=== PATIENT | female | born 1995 | race Caucasian/White ===

== ENCOUNTER 2023-06-01 09:40 | Outpatient (CLI) | payer OTHER, SELFPAY ==
--- NOTE | ~2023-06-01 | US_ITS ---
Pelvic ultrasound. Clinical History: Ovarian polyps Technique: Realtime transabdominal and transvaginal scanning of the pelvis was performed. Color flow Doppler and Doppler spectral analysis were performed. Findings: The uterus is anteverted. The endometrial stripe has a thickness of 8 mm. No focal mass is identified. The right ovary measures 3.3 x 2.2 x 3.9 cm. Right ovarian cyst measures 2.0 cm in diameter. The left ovary measures 3.2 x 2.0 x 3.6 cm. No significant left ovarian or adnexal mass is seen. There is minimal free fluid in the cul de sac. Impression: Minimal free fluid, otherwise unremarkable exam. Reviewed, dictated and finalized at location M. Impression: Minimal free fluid, otherwise unremarkable exam.
== END 2023-06-01 09:41 ==
LOC: MICIMG 09:41
PROVIDERS: PCP Obstetrics & Gynecology; Visit Provider Obstetrics & Gynecology
DX: N93.9 Abnormal uterine and vaginal bleeding, unspecified (principal)
CPT/HCPCS: 76830; 76856

== ENCOUNTER 2023-09-30 20:50 | Observation (INO) | payer OTHER, SELFPAY ==
[2023-09-30 21:31] VITALS: BP 130/68; PULSE 84
[2023-09-30 21:45] VITALS: BP 129/72; PULSE 80
[2023-09-30 21:52] LABS: Appearance Urine Clear (Clear); Bilirubin Urine Negative (Negative); Blood Urine Negative (Negative); Color Urine Yellow (Yellow); Glucose Urine UA Negative (Negative); Ketones Urine Negative (Negative); Leukocyte Esterase Ur Negative LEU/UL (Negative); Nitrate Urine Negative (Negative); Protein Urine Negative (Negative); Specific Grav Ur 1.002 (1.001-1.035); Urobilinogen Urine 0.2 mg/dL (<2.0); pH Urine 6.5 (5.0-9.0)
[2023-09-30 22:00] VITALS: BP 120/81; PULSE 85
[2023-09-30 22:08] LABS: Add Urine Microscopic? NO
[2023-09-30 22:12] LABS: OBXCEM Questionable ROM
[2023-09-30 22:15] VITALS: BP 111/61; PULSE 79
[2023-09-30 22:17] VITALS: BMI 30.7
--- NOTE | 2023-09-30 22:17 | OBADM ---
This patient, Jacqui Jorge, admitted to the OB room OB Post 117 for observation. Patient/family oriented to hospital policies and general routines including ID bracelet, bed and alarms, visiting hours, pain management, procedures, bathroom and other care routines, personal items, smoking policy, room service/diet, and visiting hours. Patient/Family are encouraged to report perceived risks to care and to ask questions if they do not understand what they are told or what they should do.
--- NOTE | 2023-10-02 09:22 | P.PNOB_ITS ---
OB - Triage/Final Diagnosis Visit Information Comments/Additional reasons for admission: I have assessed the risk for this patient, Jacqui Jorge, and determined that she would benefit from observation care. Evaluation Laboratory results: Laboratory Tests 09/30/23 09/30/23 21:45 22:02 Urine Color Yellow Urine Appearance Clear Urine pH 6.5 Ur Specific [place] 1.002 Urine Protein Negative Urine Glucose (UA) Negative Urine Ketones Negative Ur Blood (Man) Negative Urine Nitrate Negative Urine Bilirubin Negative Urine Urobilinogen 0.2 Leukocyte Esterase Rfl Negative Membranes Rupture Questionable rom Membranes Rup Com Yes Final Diagnosis (1) Vaginal bleeding before 22 weeks gestation: Code(s): O20.9 - Hemorrhage in early , unspecified Status: Acute
== END 2023-09-30 22:30 | disposition home or self-care (01) ==
PROVIDERS: Admitting Provider Obstetrics & Gynecology; Visit Provider Obstetrics & Gynecology
DX: O20.9 Hemorrhage in early pregnancy, unspecified (principal)
CPT/HCPCS: 81003; 84112; G0378; G0379

== ENCOUNTER 2023-12-01 07:33 | Outpatient (CLI) | payer OTHER, SELFPAY ==
[2023-12-01 09:23] LABS: Basophils Percent Auto 0.5 % (0.2-1.2); Eosinophils Absolute Auto 0.2 K/mm3 (0-0.3); Eosinophils Percent Auto 2.1 % (0-4.4); Hematocrit 33.1 % (37.0-47.0); Hemoglobin 10.6 g/dL (12.0-15.0); Immature Granulocyte Absolute 0.02 K/mm3 (0.00-0.031); Immature Granulocyte Percent A 0.2 % (0-0.5); Lymphocytes Absolute Auto 1.45 K/mm3 (0.9-3.2); Lymphocytes Percent Auto 16.6 % (18.3-44.2); Mean Corpuscular Volume 87.6 fl (80-100); Mean Platelet Volume 11.1 fl (7.4-10.4); Monocytes Absolute Auto 0.7 K/mm3 (0.1-0.6); Monocytes Percent Auto 7.4 % (2.6-8.5); Neutrophils Absolute Auto 6.4 K/mm3 (1.3-6.7); Neutrophils Percent Auto 73.2 % (45.5-73.1); Platelet Count Result 182 k/mm3 (150-375); Red Blood Count 3.78 M/mm3 (4.2-5.4); Red Cell Distribution Width 13.5 % (11.5-14.5); White Blood Count 8.7 K/mm3 (4.5-10.0)
[2023-12-01 09:33] LABS: Glucose 1 Hour PP 50gm Dose 75 mg/dL
[2023-12-01 10:59] LABS: HIV 1/2 Ab P24 Ag Result Negative (Negative)
[2023-12-02 11:10] LABS: Rapid Plasma Reagin Non-Reactive (NonReactive)
== END 2023-12-01 07:34 | disposition home or self-care (01) ==
LOC: ANHLAB 07:34
PROVIDERS: Visit Provider Student in an Organized Health Care Education/Training Program
DX: Z34.90 Encounter for supervision of normal pregnancy, unspecified, unspecified trimester (principal)
CPT/HCPCS: 36415; 82947; 85025; 86592; 86703; G0432

== ENCOUNTER 2024-01-07 13:58 | Observation (INO) | payer OTHER, SELFPAY ==
[2024-01-07 14:30] VITALS: BP 128/69; PULSE 77
[2024-01-07 14:45] VITALS: BP 119/70; PULSE 80
--- NOTE | 2024-01-07 15:09 | OBADM ---
This patient, Jacqui Jorge, admitted to the OB room OB Post 116 for observation. Patient/family oriented to hospital policies and general routines including ID bracelet, bed and alarms, visiting hours, pain management, procedures, bathroom and other care routines, personal items, smoking policy, room service/diet, and visiting hours. Patient/Family are encouraged to report perceived risks to care and to ask questions if they do not understand what they are told or what they should do.
--- NOTE | 2024-01-08 07:38 | PM.OBTRLD ---
OB - Triage/Final Diagnosis Visit Information Date of evaluation: 01/06/24 Reason for evaluation: threatened labor Comments/Additional reasons for admission: I have assessed the risk for this patient, Jacqui Jorge, and determined that she would benefit from observation care. Evaluation Vital signs: Vital Signs - 24 hr 01/07/24 14:30 01/07/24 14:45 01/07/24 14:20 Pulse Rate 77 80 Blood Pressure 128/69 119/70 Oxygen Delivery Room Air
== END 2024-01-07 15:10 | disposition home or self-care (01) ==
PROVIDERS: Admitting Provider Student in an Organized Health Care Education/Training Program; Visit Provider Student in an Organized Health Care Education/Training Program
DX: O47.03 False labor before 37 completed weeks of gestation, third trimester (principal); Z3A.33 33 weeks gestation of pregnancy
CPT/HCPCS: G0378; G0379

== ENCOUNTER 2024-01-12 10:14 | Observation (INO) | payer OTHER, SELFPAY ==
[2024-01-12 10:39] VITALS: BP 129/87; PULSE 91
[2024-01-12 10:45] VITALS: BMI 36.3
[2024-01-12 10:47] LABS: Add Urine Microscopic? NO; Appearance Urine Clear (Clear); Bilirubin Urine Negative (Negative); Blood Urine Negative (Negative); Color Urine Yellow (Yellow); Glucose Urine UA Negative (Negative); Ketones Urine Negative (Negative); Leukocyte Esterase Ur Negative LEU/UL (Negative); Nitrate Urine Negative (Negative); Protein Urine Negative (Negative); Specific Grav Ur 1.004 (1.001-1.035); Urobilinogen Urine 0.2 mg/dL (<2.0); pH Urine 6.5 (5.0-9.0)
--- NOTE | 2024-01-12 10:58 | LDADM ---
This patient, Jacqui Jorge, was admitted to OB Post 116 on 01/12/24 at 10:14. Plans for labor, pain management and were discussed with patient. Patient/family oriented to hospital policies and general routines including ID bracelet, bed and alarms, visiting hours, pain management, procedures, bathroom and other care routines, personal items, smoking policy, room service/diet and guest tray routines, security routines, and visiting hours. Patient/Family are encouraged to report perceived risks to care and to ask questions if they do not understand what they are told or what they should do. See OBIX for further documentation.
[2024-01-12 11:00] VITALS: BP 123/78; PULSE 85
[2024-01-12 11:10] VITALS: BP 129/87
--- NOTE | 2024-01-12 11:38 | PC.NURSE ---
1114--Reported reactive NST and lab results to Dr. Kohler. DC orders given.
--- NOTE | 2024-01-14 11:21 | P.PNOB_ITS ---
OB - Triage/Final Diagnosis Visit Information Reason for evaluation: decreased movement Comments/Additional reasons for admission: I have assessed the risk for this patient, Jacqui Jorge, and determined that she would benefit from observation care. Evaluation Laboratory results: Laboratory Tests 01/12/24 10:36 Urine Color Yellow Urine Appearance Clear Urine pH 6.5 Ur Specific [place] 1.004 Urine Protein Negative Urine Glucose (UA) Negative Urine Ketones Negative Ur Blood (Man) Negative Urine Nitrate Negative Urine Bilirubin Negative Urine Urobilinogen 0.2 Leukocyte Esterase Rfl Negative
== END 2024-01-12 11:25 | disposition home or self-care (01) ==
PROVIDERS: Admitting Provider Obstetrics & Gynecology; Visit Provider Obstetrics & Gynecology
DX: O36.8130 Decreased fetal movements, third trimester, not applicable or unspecified (principal); Z3A.34 34 weeks gestation of pregnancy
CPT/HCPCS: 59025; 81003; G0378; G0379

== ENCOUNTER 2024-01-26 07:46 | Outpatient (CLI) | payer OTHER, SELFPAY ==
--- NOTE | ~2024-01-26 | US_ITS ---
EXAMINATION: US OB follow up DATE: 01/26/2024 08:50 INDICATION: Encounter for supervision of normal during third trimester TECHNIQUE: Real-time ultrasound of the pelvis was performed. The interpreting radiologist was not pre sent for the study. COMPARISON: None. FINDINGS: There is a single living fetus in vertex presentation. The placenta is right anterior and not low-ly ing. heart rate is 142 beats per minute (bpm). The amniotic fluid index is 10.9 cm, which is n ormal. Cervical length appears within normal limits but the internal os and external os are not clear ly visualized. The following biometric data were obtained: BPD: 8.9 cm -> 36 weeks 0 days Head circumference: 32.1 cm -> 36 weeks 2 days Abdominal circumference: 32.2 cm -> 36 weeks 0 days Femur length: 7.1 cm -> 36 weeks 3 days These measurements are concordant. Head circumference to abdominal circumference ratio: 1.00 (normal range 0.92-1.08). Estimated weight: 2868 g (+/-) 430 g or 6 lbs. 5 oz. (+/-) 15 oz. IMPRESSION: 1. Single living fetus in vertex presentation with heart rate of 142 bpm. 2. Normal amniotic fluid index of 10.9 cm. 3. Estimated weight is 53rd percentile by Hadlock criteria when 02/22/2024 is used as the estima liss date of delivery (BELGICA). Please correlate with clinical information or earlier ultrasounds for mos t accurate [place]GICA. Reviewed, dictated and finalized at location B. IO OPERATIONS MANAGER IMPRESSION: 1. Single living fetus in vertex presentation with heart rate of 142 bpm. 2. Normal amniotic fluid index of 10.9 cm. 3. Estimated weight is 53rd percentile by Hadlock criteria when 02/22/2024 is used as the estimated date of delivery (BELGICA). Please correlate with clinica l information or earlier ultrasounds for most accurate BELGICA.
== END 2024-01-26 07:47 | disposition home or self-care (01) ==
PROVIDERS: PCP Student in an Organized Health Care Education/Training Program; Visit Provider Student in an Organized Health Care Education/Training Program
DX: Z34.90 Encounter for supervision of normal pregnancy, unspecified, unspecified trimester (principal); Z3A.00 Weeks of gestation of pregnancy not specified
CPT/HCPCS: 76816

== ENCOUNTER 2024-02-11 07:43 | Observation (INO) | payer OTHER, SELFPAY ==
--- NOTE | 2024-02-11 07:43 | OBADM ---
This patient, Jacqui oJrge, admitted to the OB room Labor/Delivery/Recovery 106 for observation. Patient/family oriented to hospital policies and general routines including ID bracelet, bed and alarms, visiting hours, pain management, procedures, bathroom and other care routines, personal items, smoking policy, room service/diet, and visiting hours. Patient/Family are encouraged to report perceived risks to care and to ask questions if they do not understand what they are told or what they should do.
[2024-02-11 08:00] VITALS: BMI 34.4
--- NOTE | 2024-02-12 07:49 | PM.OBTRLD ---
OB - Triage/Final Diagnosis Visit Information Date of evaluation: 02/11/24 Reason for evaluation: threatened labor Comments/Additional reasons for admission: I have assessed the risk for this patient, Jacqui Jorge, and determined that she would benefit from observation care. Evaluation Vital signs: Vital Signs - 24 hr 02/11/24 08:00 Oxygen Delivery Room Air
== END 2024-02-11 10:35 | disposition home or self-care (01) ==
PROVIDERS: Admitting Provider Student in an Organized Health Care Education/Training Program; PCP Student in an Organized Health Care Education/Training Program; Visit Provider Student in an Organized Health Care Education/Training Program
DX: O47.1 False labor at or after 37 completed weeks of gestation (principal); Z3A.38 38 weeks gestation of pregnancy
CPT/HCPCS: G0378; G0379

== ENCOUNTER 2024-02-12 05:05 | Inpatient (IN) | payer OTHER, SELFPAY ==
[2024-02-12] VITALS (213 sets, daily range): BP systolic 113–166; BP diastolic 45–138; PULSE 42–152; RESP 14; TEMP 36.3–37.7; O2SAT 84–100; BMI 34.4
--- NOTE | 2024-02-12 05:05 | LDADM ---
This patient, Jacqui Jorge, was admitted to Labor/Delivery/Recovery 106 on 02/12/24 at 05:05. Plans for labor, pain management and were discussed with patient. Patient/family oriented to hospital policies and general routines including ID bracelet, bed and alarms, visiting hours, pain management, procedures, bathroom and other care routines, personal items, smoking policy, room service/diet and guest tray routines, infant security routines, and visiting hours. Patient/Family are encouraged to report perceived risks to care and to ask questions if they do not understand what they are told or what they should do. See OBIX for further documentation.
[2024-02-12] MEDS: LACTATED RINGERS 1,000 ML 125 ML IV CONT ×3 (06:35→13:36)
[2024-02-12] MEDS: OXYTOCIN 30 UNITS/NS 500 ML 30 UNITS/500 ML BAG IV CONT (06:36)
[2024-02-12 06:37] LABS: Basophils Absolute Auto 0.1 K/mm3 (0.0-0.1); Basophils Percent Auto 0.7 % (0.2-1.2); Eosinophils Absolute Auto 0.1 K/mm3 (0-0.3); Eosinophils Percent Auto 1.3 % (0-4.4); Hematocrit 32.8 % (37.0-47.0); Hemoglobin 9.6 g/dL (12.0-15.0); Immature Granulocyte Absolute 0.04 K/mm3 (0.00-0.031); Immature Granulocyte Percent A 0.4 % (0-0.5); Mean Corpuscular HGB Conc 29.3 g/dl (32-36); Mean Corpuscular Hemoglobin 24.8 pg (26-34); Mean Corpuscular Volume 84.8 fl (80-100); Mean Platelet Volume 11.2 fl (7.4-10.4); Monocytes Absolute Auto 0.7 K/mm3 (0.1-0.6); Monocytes Percent Auto 8.1 % (2.6-8.5); Neutrophils Absolute Auto 6.4 K/mm3 (1.3-6.7); Neutrophils Percent Auto 71.5 % (45.5-73.1); Platelet Count Result 178 k/mm3 (150-375); Red Blood Count 3.87 M/mm3 (4.2-5.4); Red Cell Distribution Width 13.6 % (11.5-14.5); White Blood Count 8.9 K/mm3 (4.5-10.0)
--- NOTE | 2024-02-12 07:26 | P.PNAN_ITS ---
Anes - Eval Pre Procedure Procedure: labor epidural Date/Time: 02/12/24 07:26 Surgeon: Maryjo Preop Diagnosis: Pain during labor Pre Op Diagnosis: SROM Patient Data Age: 29 Gender: F Height: Weight: Allergies Allergy/AdvReac Type Severity Reaction Status Date / Time nitrofurantoin Allergy Severe Anaphylactic Verified 02/11/24 17:11 [From Macrobid] Shock Sulfa (Sulfonamide Allergy Severe Anaphylactic Verified 02/11/24 17:11 Antibiotics) Shock latex Allergy Intermediate Rash Verified 02/11/24 17:11 Home Medications Medication Instructions Recorded Confirmed Type vits no.126-ferrous fum 1 tablet PO DAILY 07/12/23 02/11/24 History 28 mg iron-folic acid 800 mcg tablet (Classic ) aspirin 81 mg tablet,delayed 81 mg PO BID 09/05/23 02/11/24 History release (Adult Low Dose Aspirin) ondansetron 4 mg disintegrating 4 mg PO .COMPLEX PRN nausea and 12/24/23 02/11/24 Rx tablet vomiting #30 tabs sertraline 25 mg tablet 25 mg PO DAILY #60 tabs 01/14/24 02/11/24 Rx Laboratory Tests 02/12/24 06:22 WBC 8.9 K/mm3 (4.5-10.0) RBC 3.87 L M/mm3 (4.2-5.4) Hgb 9.6 L g/dL (12.0-15.0) Hct 32.8 L % (37.0-47.0) MCV 84.8 fl (80-100) MCH 24.8 L pg (26-34) MCHC 29.3 L g/dl (32-36) RDW 13.6 % (11.5-14.5) Plt Count 178 k/mm3 (150-375) MPV 11.2 H fl (7.4-10.4) Immature Gran % (Auto) 0.4 % (0-0.5) Neut % (Auto) 71.5 % (45.5-73.1) Lymph % (Auto) 18.0 L % (18.3-44.2) [place] % (Auto) 8.1 % (2.6-8.5) Eos % (Auto) 1.3 % (0-4.4) Baso % (Auto) 0.7 % (0.2-1.2) Lymph # (Auto) 1.60 K/mm3 (0.9-3.2) [place] # (Auto) 0.7 H K/mm3 (0.1-0.6) Eos # (Auto) 0.1 K/mm3 (0-0.3) Baso # (Auto) 0.1 K/mm3 (0.0-0.1) Abs Immat Gran (auto) 0.04 H K/mm3 (0.00-0.031) Absolute Neuts (auto) 6.4 K/mm3 (1.3-6.7) Absolute Nucleated RBC 0.000 K/mm3 (0.0-0.012) Nucleated RBC % 0.0 % (0.0-0.2) RPR Pending HIV 1&2 Ab/P24 Ag 4thGn Pending Blood Type Pending Antibody Screen Pending Patient hx anesthesia problems: none Family hx anesthesia problems: none Results Review: All pre-operative results and documents have been reviewed as part of the pre- operative evaluation. [facility] Past Medical History Medical History Suppression of menses Surgical History Surgical History Hx of appendectomy Family History Family History Grandparent Renal cancer Cerebrovascular accident Acute myocardial infarction Diabetes mellitus Sibling Muscular dystrophy sister Social History Social History Smoking status: Never smoker Second hand tobacco smoke exposure: No Alcohol intake: former Alcohol use details: occasional Substance use: never Substance use type: does not use Do You Feel Safe in your Home?: Yes Lack of Transportation: No Lack of Food: Never True Current Housing: I Have Housing Concerned About Future Housing: No Difficulty Paying Gas/Electric Bills: No Difficulty Paying for Meds: No Currently Unemployed: No Education: Master's Degree or Higher Difficulty w/ Childcare or Family Care: No Living arrangements: with family Additional living arrangements comments: in relationship Occupation/Education: occupation 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
[2024-02-12 07:30] LABS: HIV 1/2 Ab P24 Ag Result Negative (Negative)
[2024-02-12 07:47] LABS: Rapid Plasma Reagin Non-Reactive (NonReactive)
--- NOTE | 2024-02-12 07:51 | WPDHPUPDATE1 ---
History and Physical Update Update Date/Time: 02/12/24 07:51 29 yo at 38w4d who presents after SROM History and Physical has been reviewed, including an updated exam of the patient. There are NO changes in the patient's condition. Risks, benefits, and alternatives have been discussed and questions answered. Patient agrees to proceed with procedure. A/P: 29 yo at 38w4d who presents after SROM cvx FHT reassuring rubella non-immune GBS neg
[2024-02-12] MEDS: ONDANSETRON INJ 4 MG/2 ML VIAL IV PUSH (14:36)
--- NOTE | 2024-02-12 16:47 | PM.OBPRVD ---
OB - Vaginal Delivery Note Procedure Delivery date: 02/12/24 Induction method: None Delivery augmentation: Pitocin Delivery monitor: None Route of delivery: Episiotomy description: None Laceration Description: Labial (right) Delivery repair: vicryl Specimen: No Quantitative Blood Loss (ml): 200 Anesthesia type: Epidural Disposition: Floor Complications: No immediate complications Narrative: Patient pushed for a spontaneous vaginal delivery. The fetus was delivered atraumatically and placed on the maternal abdomen. The cord was clamped and cut after 1 minute of life. The cord was double clamped and cut and a segment of cord was collected for cord gases. Cord blood was collected for blood type and Coomb's testing. The placenta delivered spontaneously and was noted to be intact. The perineum was inspected and noted to be intact. There were two right labial lacerations that were repaired with 3-0 vicryl with figure of 8 sutures. The uterus was firm and good hemostasis was noted. Baby Date of : 02/12/24 Time of : 16:33 Gestational Age by Date: 38 gender: Male presentation: vertex position: Right Occiput Anterior Placenta delivery description: Spontaneous Cord Vessel Description: 3 Vessels score one minute: 8 score five minutes: 9
[2024-02-12] MEDS: OXYTOCIN 30 UNITS/NS 500 ML 30 UNITS/500 ML BAG 125 UNITS IV CONT (17:03)
[2024-02-12 19:20] LABS: Glucose Point of Care 85 mg/dl (65-105)
--- NOTE | 2024-02-12 19:20 | PC.NURSE ---
Dr. Sibley updated on the pt feeling crummy. pt got up to the bathroom okay with assistance and then once back in bed and settled the pt called back out saying that she did not feel well and felt like she was going to pass out. RN x2 checked blood pressure, fundus firm -2, blood sugar check. Pt states she felt better after that was completed and stated that before she was she has palpations but the doctors could not figure out anything with her. ordered Stat H&H a LR bolus and call with result.
[2024-02-12 19:55] LABS: Hematocrit 28.4 % (37.0-47.0)
--- NOTE | 2024-02-12 20:31 | OBPPTRN ---
Patient transferred to post room #277 via wheelchair. Support person present. Oriented to unit, room, information board, rooming in, admission packet and security measures. Patient verbalizes understanding.
[2024-02-13] MEDS: ACETAMINOPHEN 325 MG TABLET 650 MG PO (01:04)
[2024-02-13 06:22] LABS: Hematocrit 27.3 % (37.0-47.0); Hemoglobin 8.3 g/dL (12.0-15.0)
[2024-02-13] MEDS: DOCUSATE SODIUM 100 MG CAPSULE PO ×2 (07:40→17:19)
[2024-02-13] MEDS: MULTIVIT/MIN/PREN/FOL AC/IRON TABLET 1 TAB PO (07:40)
[2024-02-13] MEDS: POLYSACCHARIDE IRON COMPLEX 150 MG CAPSULE PO ×2 (07:40→17:18)
[2024-02-13] MEDS: SERTRALINE HCL 25 MG TABLET PO (07:41)
--- NOTE | 2024-02-13 07:52 | WPDANLDPN2 ---
Anes-Prog Note L&D Date/Time: 02/13/24 07:52 Comfortable throughout: labor and delivery Neuraxial method: epidural Epidural/Spinal procedure site: tender Neuro status: Neuro function grossly intact. Cardiovascular status: normal Respiratory status: normal Airway patency: baseline Mental status: baseline Post-Op hydration status: normal Vital Signs: Last Vital Signs Temp 36.5 C 02/12/24 20:45 Pulse 100 02/12/24 20:45 Resp 14 02/12/24 20:45 BP 113/77 02/12/24 20:45 Pulse Ox 99 02/12/24 20:45 O2 Del Method Room Air 02/12/24 20:45 Pain score (VAS): 3/10 I/O: Intake & Output 02/12/24 02/12/24 02/13/24 15:59 23:59 07:59 Intake Total 877.1 Output Total 200 Balance 877.1 -200 Post-procedural complaints: none Patient feedback: Patient satisfied with anesthetic care.
--- NOTE | 2024-02-13 08:29 | PM.OBPNVD ---
OB - PN: Subj Subjective Date/time seen: 02/13/24 08:29 Patient comments: no complaints, pain well controlled and tolerating diet Narrative: patient doing well this AM. No complaints. Pain is well controlled. She reports minimal bleeding. She is ambulating and voiding without difficulty. She is tolerating PO. She denies N/V, fever, chills. OB - PN: Obj Data Labs 02/13/24 04:38 Labs: Laboratory Results - last 24 hr 02/12/24 02/12/24 02/12/24 06:22 19:12 19:29 Hgb 9.0 L Hct 28.4 L POC Capillary Glucose 85 Blood Type O Positive Antibody Screen Negative 02/13/24 04:38 Hgb 8.3 L Hct 27.3 L POC Capillary Glucose Blood Type Antibody Screen OB - PN A/P Plan day: 1 Plan: routine care Comments: patient doing well H/H 8.06/12, VSS continue routine care Time Spent With Patient Time: Total time spent is greater than 50% in coordination of care (as documented) at patient's floor/unit and/or counseling patient: Time with patient: less than 15 minutes Review of Systems Review of Systems: All systems reviewed & are unremarkable except as noted in HPI and below Exam Const: General: comfortable and no acute distress Resp: Effort & Inspection: normal respiratory effort Cardio: Rate: regular rate GI: GI Palp: Yes Soft to palpation and No Tenderness to palpation present (GI) Auscultation: normal bowel sounds Other: fundus firm and below umbilicus. Psych: Affect: normal affect
[2024-02-13 08:38] VITALS: BP 131/84; PULSE 98; RESP 20; TEMP 36.7; O2SAT 96
[2024-02-13 12:12] VITALS: BP 123/70; PULSE 85; RESP 20; TEMP 37; O2SAT 98
[2024-02-13 12:22] VITALS: BP 123/74; PULSE 86; RESP 18; TEMP 36.8; O2SAT 99
[2024-02-13 19:30] VITALS: BP 130/73; PULSE 95; RESP 18; TEMP 36.6; O2SAT 100
--- NOTE | 2024-02-14 08:00 | PM.OBDSVD ---
DS: Admitting Diagnosis Discharge Date 02/14/24 Admitting Diagnosis intrauterine at term DS: Discharge Diagnosis Discharge Diagnosis (1) Normal vaginal delivery: Code(s): O80 - Encounter for full-term uncomplicated delivery Status: Acute OB - DS: Summary OB Procedures : None OB Procedures Intrapartum: Spontaneous Vag Delivery OB Procedures: : None Peripartum Data Laceration Description: Labial (right) Episiotomy description: None Status at Discharge Functional status at discharge: independent ambulation Overall status at discharge: patient is back to baseline Time Spent with Patient Time attestation: Total time spent providing and/or coordinating discharge services: Time spent: Less than 30 minutes Exam Const: General: comfortable and no acute distress Resp: Effort & Inspection: normal respiratory effort Auscultation: clear to auscultation bilaterally Cardio: Rate: regular rate GI: GI Palp: Yes Soft to palpation Auscultation: normal bowel sounds Other: Fundus firm below umbilicus Psych: Appearance: grossly normal Mental Status: mental status grossly normal Affect: normal affect Discharge Plan Discharge Discharging Clinician: Sid Sibley Patient Disposition: Home, Self-Care Activity: as tolerated and pelvic rest Diet: regular Patient Instructions: Antibiotic Form, Vaginal Delivery (DC) Stand Alone Forms: General Discharge Information Follow-up/Referrals: Sid Sibley MD [Physician] - 4 Weeks Discharge Medications: New acetaminophen 500 mg tablet 500 mg PO Q6H PRN (Reason: pain) Qty: 30 0RF ibuprofen 600 mg tablet 600 mg PO Q6H PRN (Reason: pain) Qty: 30 0RF Niferex (Sumalate-Quatrefolic) 150 mg iron- 60 mg-1 mg tablet 1 tablet PO DAILY Qty: 30 0RF sennosides-docusate sodium [Senna with Docusate Sodium] 8.6-50 mg tablet 1 tab-cap PO HS Qty: 30 0RF Continued Classic 28 mg iron- 800 mcg tablet 1 tablet PO DAILY sertraline 25 mg tablet 25 mg PO DAILY Qty: 60 0RF aspirin [Adult Low Dose Aspirin] 81 mg tablet,delayed release (DR/EC) 81 mg PO BID ondansetron 4 mg tablet,disintegrating 4 mg PO .COMPLEX PRN (Reason: nausea and vomiting) Qty: 30 0RF Rx Instructions: 4 mg orally q4-6h PRN nausea/vomiting Date of admission: 02/12/24 05:05 Primary Care Provider: UNKNOWN,DOCTOR Admitting Provider: Sid Sibley Attending physician on admission: Sid Sibley Condition: Stable
[2024-02-14 08:02] VITALS: BP 120/82; PULSE 75; RESP 16; TEMP 36.6; O2SAT 99
[2024-02-14] MEDS: POLYSACCHARIDE IRON COMPLEX 150 MG CAPSULE PO (09:07)
[2024-02-14] MEDS: DOCUSATE SODIUM 100 MG CAPSULE PO (09:07)
[2024-02-14] MEDS: SERTRALINE HCL 25 MG TABLET PO (09:07)
[2024-02-14] MEDS: MULTIVIT/MIN/PREN/FOL AC/IRON TABLET 1 TAB PO (09:07)
[2024-02-14] MEDS: MEASLES,MUMPS,RUBELLA VACCINE 0.5 ML VIAL SUB-Q (11:29)
[2024-02-15 14:54] VITALS: BP 139/77; PULSE 89; RESP 20; TEMP 36.8; O2SAT 100
== END 2024-02-14 11:45 | disposition home or self-care (01) | DRG 807 ==
LOC: ANHLDR 06:19 → ANHOB2 21:09
PROVIDERS: Admitting Provider Obstetrics & Gynecology; Visit Provider Student in an Organized Health Care Education/Training Program
DX: O70.0 First degree perineal laceration during delivery (principal); Z37.0 Single live birth; Z3A.38 38 weeks gestation of pregnancy
CPT/HCPCS: 36415; 82948; 85014; 85018; 85025; 86592; 86703; 86850; 86900; 86901; 90710; A9270; G0432; J2405; J2590; J2795; J7120

== ENCOUNTER 2024-02-18 15:33 | Outpatient (CLI) | payer OTHER, SELFPAY ==
[2024-02-18] VITALS (27 sets, daily range): BP systolic 128–135; BP diastolic 72–91; PULSE 70–91; O2SAT 96–100
[2024-02-18 16:33] LABS: Basophils Percent Auto 0.4 % (0.2-1.2); Eosinophils Absolute Auto 0.2 K/mm3 (0-0.3); Eosinophils Percent Auto 2.5 % (0-4.4); Hematocrit 31.2 % (37.0-47.0); Hemoglobin 9.7 g/dL (12.0-15.0); Immature Granulocyte Absolute 0.06 K/mm3 (0.00-0.031); Immature Granulocyte Percent A 0.7 % (0-0.5); Lymphocytes Absolute Auto 1.51 K/mm3 (0.9-3.2); Lymphocytes Percent Auto 16.9 % (18.3-44.2); Mean Corpuscular HGB Conc 31.1 g/dl (32-36); Mean Corpuscular Hemoglobin 25.3 pg (26-34); Mean Corpuscular Volume 81.5 fl (80-100); Mean Platelet Volume 10.4 fl (7.4-10.4); Monocytes Absolute Auto 0.6 K/mm3 (0.1-0.6); Monocytes Percent Auto 6.3 % (2.6-8.5); Neutrophils Absolute Auto 6.5 K/mm3 (1.3-6.7); Neutrophils Percent Auto 73.2 % (45.5-73.1); Platelet Count Result 223 k/mm3 (150-375); Red Blood Count 3.83 M/mm3 (4.2-5.4); Red Cell Distribution Width 14.2 % (11.5-14.5); White Blood Count 8.9 K/mm3 (4.5-10.0)
[2024-02-18 16:44] LABS: Alanine Aminotransferase 30 U/L (6-35); Albumin Level 3.8 g/dL (3.5-5.1); Alkaline Phosphatase 135 U/L (38-126); Anion Gap 4 mmol/L (4-12); Aspartate Amino Transferase 35 U/L (14-36); Bilirubin,Total 0.4 mg/dL (0.2-1.3); Blood Urea Nitrogen 10 mg/dL (7-17); Carbon Dioxide 29 mmol/L (22-30); Chloride 104 mmol/L (98-107); Estimated Glomerular Filt Rate > 60; Glucose 107 mg/dL (65-110); Sodium 137 mmol/L (137-145); Uric Acid 6.3 mg/dL (2.5-7.5)
--- NOTE | 2024-02-18 17:38 | PC.NURSE ---
9737--Report to Dr. Sibley re: lab results and v.s. Orders to [facility].
== END 2024-02-18 17:30 ==
LOC: ANHOBOP 16:25 → ANHOBPP 16:25
PROVIDERS: Visit Provider Student in an Organized Health Care Education/Training Program
DX: O13.9 Gestational [pregnancy-induced] hypertension without significant proteinuria, unspecified trimester (principal); Z3A.00 Weeks of gestation of pregnancy not specified
CPT/HCPCS: 36415; 80053; 84550; 85025

== ENCOUNTER 2024-06-20 13:41 | Outpatient (CLI) | payer OTHER, SELFPAY | END 2024-06-20 13:42 | disposition home or self-care (01) | LOC: ANHCARD 13:43 | PROVIDERS: PCP Nurse Practitioner Family; Visit Provider Nurse Practitioner Family | DX: Z13.220 Encounter for screening for lipoid disorders (principal); R00.2 Palpitations | CPT/HCPCS: 93242 ==

== ENCOUNTER 2024-06-28 13:39 | Outpatient (CLI) | payer OTHER, SELFPAY ==
[2024-06-28 14:16] LABS: Basophils Absolute Auto 0.1 K/mm3 (0.0-0.1); Eosinophils Absolute Auto 0.1 K/mm3 (0-0.3); Eosinophils Percent Auto 1.8 % (0-4.4); Hematocrit 40.3 % (37.0-47.0); Hemoglobin 12.9 g/dL (12.0-15.0); Immature Granulocyte Absolute 0.04 K/mm3 (0.00-0.031); Immature Granulocyte Percent A 0.8 % (0-0.5); Lymphocytes Absolute Auto 1.48 K/mm3 (0.9-3.2); Lymphocytes Percent Auto 29.5 % (18.3-44.2); Mean Corpuscular Hemoglobin 27.6 pg (26-34); Mean Corpuscular Volume 86.1 fl (80-100); Mean Platelet Volume 10.8 fl (7.4-10.4); Monocytes Absolute Auto 0.4 K/mm3 (0.1-0.6); Monocytes Percent Auto 7.6 % (2.6-8.5); Neutrophils Percent Auto 59.3 % (45.5-73.1); Platelet Count Result 198 k/mm3 (150-375); Red Blood Count 4.68 M/mm3 (4.2-5.4); Red Cell Distribution Width 12.3 % (11.5-14.5)
[2024-06-28 14:36] LABS: Alanine Aminotransferase 22 U/L (6-35); Albumin Level 4.7 g/dL (3.5-5.1); Alkaline Phosphatase 104 U/L (38-126); Anion Gap 10 mmol/L (4-12); Aspartate Amino Transferase 25 U/L (14-36); Bilirubin,Total 0.8 mg/dL (0.2-1.3); Blood Urea Nitrogen 11 mg/dL (7-17); Calcium 9.3 mg/dL (8.4-10.2); Carbon Dioxide 29 mmol/L (22-30); Chloride 100 mmol/L (98-107); Cholesterol 192 mg/dL (0-200); Estimated Glomerular Filt Rate > 60; Glucose 92 mg/dL (65-110); HDL Direct 39 mg/dL; Potassium 4.1 mmol/L (3.4-5.0); Sodium 139 mmol/L (137-145); Triglycerides 158 mg/dL (<150)
[2024-06-28 14:37] LABS: Iron 127 ug/dL (37-170)
[2024-06-28 14:47] LABS: LDL Cholesterol Direct 106 mg/dL
[2024-06-28 14:48] LABS: Percent Iron Saturation 29 % (20-50)
[2024-06-28 15:09] LABS: Ferritin 5.98 ng/mL (6.24-137)
== END 2024-06-28 13:40 | disposition home or self-care (01) ==
PROVIDERS: PCP Nurse Practitioner Family; Visit Provider Nurse Practitioner Family
DX: R00.2 Palpitations (principal); Z13.220 Encounter for screening for lipoid disorders
CPT/HCPCS: 36415; 80053; 80061; 82607; 82728; 83540; 83550; 83735; 84443; 85025

== ENCOUNTER 2024-07-03 14:55 | Emergency (ER) | payer OTHER, SELFPAY ==
[2024-07-03] VITALS (22 sets, daily range): BP systolic 130–153; BP diastolic 76–90; PULSE 69–94; RESP 14–23; TEMP 36.4; O2SAT 97–100
--- NOTE | ~2024-07-03 | XR_ITS ---
CHEST RADIOGRAPH, PA AND LATERAL CLINICAL HISTORY: CP, WEAKNESS . COMPARISON: None available TECHNIQUE: PA and lateral views of the chest. FINDINGS The cardiomediastinal silhouette is unremarkable. The lungs are clear. Visualized osseous structures and soft tissues are unremarkable. IMPRESSION: No focal infiltrate or effusion. Reviewed, dictated and finalized at location A.
--- NOTE | ~2024-07-03 | CT_ITS ---
CTA chest PE protocol Ordering provider: Rach Gallegos PA-C History: 29 years Female with . near syncope, chest tightness, sob, +dimer . Comparison: None. Technique: CT angiogram chest was performed following timed intravenous injection of contrast. Thin s lice axial images and reformatted coronal images were obtained. Three dimensional reformatted images of the chest were also obtained using a [employer] workstation. . Automated exposure control and iterati ve reconstruction technique were employed. The dose-length product was 466.69 mGy-cm. 100 mL Omnipaqu e 350 was given IV. Findings: PULMONARY ARTERIES: No pulmonary embolus. VISUALIZED THORACIC INLET: Normal. MEDIASTINUM: Aorta/coronary arteries: The thoracic aorta is normal. Heart/other: The heart is not enlarged. Lymph nodes: No mediastinal or hilar adenopathy. LUNGS: No pulmonary nodules or masses. No infiltrates or effusions. No pneumothorax. Dependent atelectatic c hanges. VISUALIZED UPPER ABDOMEN: the visualized upper abdomen is normal. MUSCULOSKELETAL: Soft tissues: The superficial soft tissues are normal. Bones: Normal spine. IMPRESSION: 1. No pulmonary embolism. 2. No acute cardiopulmonary pathology. Reviewed, dictated and finalized at location A.
--- NOTE | 2024-07-03 15:02 | ECG_ITS ---
Test Date: 2024-07-03 15:05:06 Measurements Intervals [place] Rate: 88 P: 64 AL: 148 QRS: 29 QRSD: 101 T: 56 QT: 368 QTc: 446 Interpretive Statements SINUS RHYTHM NORMAL ECG No previous ECG available for comparison Electronically Signed On 07-03-2024 15:17:02 CDT by Miguel Wren D.O.
--- NOTE | 2024-07-03 15:03 | ED_ITS ---
HPI - Chest Pain General Chief Complaint: Chest Pain <Quyen Mario PA-C - Last Filed: 07/03/24 15:08> Stated Complaint: heart palpitation's, chest pressure <Quyen Mario PA-C - Last Filed: 07/03/24 15:08> Time Seen by Provider: 07/03/24 18:25 <Quyen Mario PA-C - Last Filed: 07/03/24 15:08> Focused HPI: 29 y/o F presents to the ED for palpitations, chest tightness, shortness of breath and generalized weakness that started an hour and half prior to arrival. Patient states she was sitting at work when her symptoms began. Denies aggravating or alleviating factors. Has had a mild cough with her symptoms. Denies hemoptysis or productivity. Denies lower extremity edema, history of VTE, recent surgeries or hospitalizations. States she has been dealing with intermittent palpitations for several months. She had an outpatient Holter monitor performed recently and is waiting for her results. Also states she gets burning throughout her body with these episodes. GENERAL: Well-appearing, well-nourished, and in no acute distress. HEAD: Normocephalic, atraumatic. CHEST: Clear to auscultation. ?No respiratory distress. HEART: Regular rate and rhythm.? NEURO: ?Alert and oriented x3. Patient screened in triage and initial orders placed.? ?Additional care and disposition to be based upon?diagnostic testing and treatment. <Quyen Mario PA-C - Last Filed: 07/03/24 15:08> Focused HPI: 29 y/o F presents to the ED for palpitations, chest tightness, shortness of breath and generalized weakness that started an hour and half prior to arrival. Patient states she was sitting at work when her symptoms began. Denies aggravating or alleviating factors. Has had a mild cough with her symptoms. Denies hemoptysis or productivity. Denies lower extremity edema, history of VTE, recent surgeries or hospitalizations. States she has been dealing with intermittent palpitations for several months. She had an outpatient Holter monitor performed recently and is waiting for her results. Also states she gets burning throughout her body with these episodes. GENERAL: Well-appearing, well-nourished, and in no acute distress. HEAD: Normocephalic, atraumatic. CHEST: Clear to auscultation. ?No respiratory distress. HEART: Regular rate and rhythm.? NEURO: ?Alert and oriented x3. Patient screened in triage and initial orders placed.? ?Additional care and disposition to be based upon?diagnostic testing and treatment. <SHARDA Holt Last Filed: 07/03/24 23:54> Source: patient <SHARDA Holt Last Filed: 07/03/24 23:54> Mode of arrival: ambulatory <SHARDA Holt Last Filed: 07/03/24 23:54> Limitations: no limitations <SHARDA Holt Last Filed: 07/03/24 23:54> History of Present Illness HPI narrative: Agree with above HPI. Patient reports the symptoms lasted for approximately 2 hours intermittently, felt near syncopal. She did not lose consciousness. She is feeling improved currently. Ate and drank normally today. Has had passing out episodes in the past with having blood drawn. <SHARDA Holt Last Filed: 07/03/24 23:54> Related Data Home Medications: Home Medications ?Medication ?Instructions ?Recorded ?Confirmed ?Last Taken ?Type vits no.126-ferrous fum 1 tablet PO DAILY 07/12/23 06/03/24 02/18/24 06:00 History 28 mg iron-folic acid 800 mcg tablet (Classic ) <SHARDA Pinto Last Filed: 07/03/24 15:08> Allergies/Adverse Reactions: Allergies Allergy/AdvReac Type Severity Reaction Status Date / Time nitrofurantoin (From Allergy Severe Anaphylactic Verified 06/03/24 08:36 Macrobid) Shock Sulfa (Sulfonamide Allergy Severe Anaphylactic Verified 06/03/24 08:36 Antibiotics) Shock latex Allergy Intermediate Rash Verified 06/03/24 08:36 <SHARDA Pinto Last Filed: 07/03/24 15:08> Review of Systems 2 Review of Systems: All systems reviewed & are unremarkable except as noted in HPI. <SHARDA Holt Last Filed: 07/03/24 23:54> All systems reviewed & are unremarkable except as noted in HPI and below < Rach Gallegos PA-C - Last Filed: 07/03/24 23:54> [facility] Past Medical History Medical History: Medical History Suppression of menses <Quyen Mario PA-C - Last Filed: 07/03/24 15:08> Surgical History Surgical History: Surgical History Hx of appendectomy <Quyen Mario PA-C - Last Filed: 07/03/24 15:08> Family History Family History: Family History Grandparent Renal cancer Cerebrovascular accident Acute myocardial infarction Diabetes mellitus Sibling Muscular dystrophy sister <Quyen Mario PA-C - Last Filed: 07/03/24 15:08> Social History Social History: Social History Smoking status: Never smoker Second hand tobacco smoke exposure: No Alcohol intake: former Alcohol use details: occasional Substance use: never Substance use type: does not use Do You Feel Safe in your Home?: Yes Lack of Transportation: No Lack of Food: Never True Current Housing: I Have Housing Concerned About Future Housing: No Difficulty Paying Gas/Electric Bills: No Difficulty Paying for Meds: No Currently Unemployed: No Education: Master's Degree or Higher Difficulty w/ Childcare or Family Care: No Living arrangements: with family Additional living arrangements comments: in relationship Occupation/Education: occupation 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 HEAD: Normocephalic, atraumatic. RESPIRATORY: Airway patent, respirations nonlabored. Clear to auscultation bilaterally, no rales, rhonchi, wheezing. CARDIOVASCULAR: Regular rate and rhythm without murmurs, rubs, or gallops. MUSCULOSKELETAL: Moves all extremities. No gross deformities. No peripheral edema. No calf tenderness. SKIN: Warm, dry, normal color. NEURO: A&O X3. Speech clear. Cranial nerves II-XII grossly intact. Steady gait. No ataxic movements. Equal quarrying manager strength bilaterally. No focal deficits. PSYCHIATRIC: Appropriate mood and affect. Normal interaction. <SHARDA Holt Last Filed: 07/03/24 23:54> Course Vital Signs Vital signs: Vital Signs Temperature 97.6 F 07/03/24 15:18 Pulse Rate 83 07/03/24 15:18 Respiratory Rate 18 07/03/24 15:18 Blood Pressure 149/80 H 07/03/24 15:18 Pulse Oximetry 100 07/03/24 15:18 Oxygen Delivery Room Air 07/03/24 15:18 Temperature 97.6 F 07/03/24 15:18 Pulse Rate 75 07/03/24 23:00 Respiratory Rate 17 07/03/24 23:00 Blood Pressure 130/76 07/03/24 22:16 Pulse Oximetry 98 07/03/24 23:00 Oxygen Delivery Room Air 07/03/24 18:52 <SHARDA Pinto Last Filed: 07/03/24 15:08> Vital Signs Temperature 97.6 F 07/03/24 15:18 Pulse Rate 83 07/03/24 15:18 Respiratory Rate 18 07/03/24 15:18 Blood Pressure 149/80 H 07/03/24 15:18 Pulse Oximetry 100 07/03/24 15:18 Oxygen Delivery Room Air 07/03/24 15:18 Temperature 97.6 F 07/03/24 15:18 Pulse Rate 75 07/03/24 23:00 Respiratory Rate 17 07/03/24 23:00 Blood Pressure 130/76 07/03/24 22:16 Pulse Oximetry 98 07/03/24 23:00 Oxygen Delivery Room Air 07/03/24 18:52 <SHARDA Holt Last Filed: 07/03/24 23:54> MDM - Chest Pain MDM Narrative Medical decision making narrative: Patient presented to ED with a near syncopal episodes that occurred while at work today. No LOC. Vital signs stable upon arrival. Patient is in no acute distress. Neurologically intact upon my evaluation. No significant orthostatic hypotension. EKG with sinus rhythm, no concerning ST changes. Baseline troponin undetectable. Basic laboratory studies with minimal leukocytosis of 11.7. H&H is stable. Stable electrolytes. Stable kidney function. Magnesium WNL. TSH WNL. D-dimer elevated to 0.76. Chest x-ray clear. CTA chest obtained and negative for PE or other acute abnormalities. 3HR trop undetectable. Patient has remained stable throughout ED stay. Has not had any recurrence of symptoms. Vital signs have remained stable. Discussed lab and imaging findings, overall reassuring workup. Suspicious for vasovagal episode, near syncope. Discussed causes of this, management, advised patient to stay very well hydrated at home. Otherwise feel patient is safe for discharge home at this time. Advised close follow-up with PCP for further evaluation. Patient has an appointment with her PCP next week. Discussed strict return precautions should symptoms recur or worsen. She agrees with plan. Discharged in stable condition. <Rach Gallegos PA-C - Last Filed: 07/03/24 23:54> Medical Records Data Attestation: I reviewed the patient's medical records. <Rach Gallegos PA-C - Last Filed: 07/03/24 23:54> Lab Data Attestation: I reviewed the patient's lab results. <Rach Gallegos PA-C - Last Filed: 07/03/24 23:54> Result diagrams: 07/03/24 16:24 07/03/24 16:24 <SHARDA Pinto Last Filed: 07/03/24 15:08> Labs: Lab Results 07/03/24 07/03/24 07/03/24 Range/Units 16:24 16:42 20:53 WBC 11.7 H (4.5-10.0) K/mm3 RBC 4.66 (4.2-5.4) M/mm3 Hgb 12.8 (12.0-15.0) g/dL Hct 39.9 (37.0-47.0) % MCV 85.6 (80-100) fl MCH 27.5 (26-34) pg MCHC 32.1 (32-36) g/dl RDW 12.6 (11.5-14.5) % Plt Count 200 (150-375) k/mm3 MPV 10.8 H (7.4-10.4) fl Immature Gran % (Auto) 0.4 (0-0.5) % Neut % (Auto) 83.5 H (45.5-73.1) % Lymph % (Auto) 10.7 L (18.3-44.2) % [place] % (Auto) 4.7 (2.6-8.5) % Eos % (Auto) 0.4 (0-4.4) % Baso % (Auto) 0.3 (0.2-1.2) % Lymph # (Auto) 1.25 (0.9-3.2) K/mm3 [place] # (Auto) 0.6 (0.1-0.6) K/mm3 Eos # (Auto) 0.1 (0-0.3) K/mm3 Baso # (Auto) 0.0 (0.0-0.1) K/mm3 Abs Immat Gran (auto) 0.05 H (0.00-0.031) K/mm3 Absolute Neuts (auto) 9.8 H (1.3-6.7) K/mm3 Absolute Nucleated RBC 0.000 (0.0-0.012) K/mm3 Nucleated RBC % 0.0 (0.0-0.2) % PT 13.3 (11.1-14.7) Seconds INR 1.0 APTT 24.7 (22.3-36.8) Seconds D-Dimer 0.76 H (<0.48) ug/mL Sodium 137 (137-145) mmol/L Potassium 4.0 (3.4-5.0) mmol/L Chloride 101 (98-107) mmol/L Carbon Dioxide 25 (22-30) mmol/L Anion Gap 11 (4-12) mmol/L BUN 14 (7-17) mg/dL Creatinine 0.68 L (0.7-1.0) mg/dL Estim Creat Clear Calc 140 ml/min Estimated GFR > 60 (59 - ) Glucose 125 H (65-110) mg/dL Calcium 9.1 (8.4-10.2) mg/dL Magnesium 2.0 (1.6-2.3) mg/dL Total Bilirubin 0.4 (0.2-1.3) mg/dL AST 29 (14-36) U/L ALT 22 (6-35) U/L Alkaline Phosphatase 128 H (38-126) U/L Troponin I < 0.012 < 0.012 (0.000-0.034) ng/mL Total Protein 8.0 (6.3-8.2) g/dL Albumin 4.7 (3.5-5.1) g/dL Lipase 50 (23-300) U/L TSH (Reflex) 1.940 (0.465-4.68) uIU/mL <Qyuen Mario PA-C - Last Filed: 07/03/24 15:08> Lab Results 07/03/24 07/03/24 07/03/24 Range/Units 16:24 16:42 20:53 WBC 11.7 H (4.5-10.0) K/mm3 RBC 4.66 (4.2-5.4) M/mm3 Hgb 12.8 (12.0-15.0) g/dL Hct 39.9 (37.0-47.0) % MCV 85.6 (80-100) fl MCH 27.5 (26-34) pg MCHC 32.1 (32-36) g/dl RDW 12.6 (11.5-14.5) % Plt Count 200 (150-375) k/mm3 MPV 10.8 H (7.4-10.4) fl Immature Gran % (Auto) 0.4 (0-0.5) % Neut % (Auto) 83.5 H (45.5-73.1) % Lymph % (Auto) 10.7 L (18.3-44.2) % [place] % (Auto) 4.7 (2.6-8.5) % Eos % (Auto) 0.4 (0-4.4) % Baso % (Auto) 0.3 (0.2-1.2) % Lymph # (Auto) 1.25 (0.9-3.2) K/mm3 [place] # (Auto) 0.6 (0.1-0.6) K/mm3 Eos # (Auto) 0.1 (0-0.3) K/mm3 Baso # (Auto) 0.0 (0.0-0.1) K/mm3 Abs Immat Gran (auto) 0.05 H (0.00-0.031) K/mm3 Absolute Neuts (auto) 9.8 H (1.3-6.7) K/mm3 Absolute Nucleated RBC 0.000 (0.0-0.012) K/mm3 Nucleated RBC % 0.0 (0.0-0.2) % PT 13.3 (11.1-14.7) Seconds INR 1.0 APTT 24.7 (22.3-36.8) Seconds D-Dimer 0.76 H (<0.48) ug/mL Sodium 137 (137-145) mmol/L Potassium 4.0 (3.4-5.0) mmol/L Chloride 101 (98-107) mmol/L Carbon Dioxide 25 (22-30) mmol/L Anion Gap 11 (4-12) mmol/L BUN 14 (7-17) mg/dL Creatinine 0.68 L (0.7-1.0) mg/dL Estim Creat Clear Calc 140 ml/min Estimated GFR > 60 (59 - ) Glucose 125 H (65-110) mg/dL Calcium 9.1 (8.4-10.2) mg/dL Magnesium 2.0 (1.6-2.3) mg/dL Total Bilirubin 0.4 (0.2-1.3) mg/dL AST 29 (14-36) U/L ALT 22 (6-35) U/L Alkaline Phosphatase 128 H (38-126) U/L Troponin I < 0.012 < 0.012 (0.000-0.034) ng/mL Total Protein 8.0 (6.3-8.2) g/dL Albumin 4.7 (3.5-5.1) g/dL Lipase 50 (23-300) U/L TSH (Reflex) 1.940 (0.465-4.68) uIU/mL <Rach Gallegos PA-C - Last Filed: 07/03/24 23:54> Imaging Data Attestation: I personally reviewed and interpreted this imaging study as follows: < Rach Gallegos PA-C - Last Filed: 07/03/24 23:54> Radiologist's impression: ITS Impressions Chest X-Ray 07/03/24 15:40 IMPRESSION: No focal infiltrate or effusion. Chest CTA 07/03/24 21:32 IMPRESSION: 1. No pulmonary embolism. 2. No acute cardiopulmonary pathology. <SHARDA Holt Last Filed: 07/03/24 23:54> ECG Data EKG #1: Attestation: I personally reviewed and interpreted this ECG as follows: <SHARDA Holt Last Filed: 07/03/24 23:54> ECG completion date: 07/03/24 <SHARDA Holt Last Filed: 07/03/24 23:54> ECG completion time: 15:05 <SHARDA Holt Last Filed: 07/03/24 23:54> EKG Interpretation: normal rate (88), sinus rhythm and no ST changes <SHARDA Holt Last Filed: 07/03/24 23:54> Discharge Plan Discharge Clinical Impression: Vasovagal near syncope <SHARDA Pinto Last Filed: 07/03/24 15:08> Patient Disposition: Home <SHARDA Pinto Last Filed: 07/03/24 15:08> Condition: Stable <SHARDA Pinto Last Filed: 07/03/24 15:08> Instructions: Antibiotic Form, Syncope (ED), Near Syncope (ED), Lightheadedness (ED) <SHARDA Pinto Last Filed: 07/03/24 15:08> Additional Instructions: Your workup here was reassuring. Stay well hydrated throughout the day. Follow-up with your primary care doctor for further evaluation. Return to ED if you experience recurrent symptoms, severe dizziness or lightheadedness, passing out, chest pain, difficulty breathing, pain or swelling in your legs, or any other symptoms of concern. <Quyen Mario PA-C - Last Filed: 07/03/24 15:08> Patient Language: Macanese <Quyen Mario PA-C - Last Filed: 07/03/24 15:08> Prescriptions: No Action Classic 28 mg iron- 800 mcg tablet 1 tablet PO DAILY sertraline 25 mg tablet 25 mg PO DAILY Qty: 60 0RF ferrous sulfate [FeroSul] 325 mg (65 mg iron) tablet 325 mg PO DAILY Qty: 30 0RF norethindrone (contraceptive) [[place]] 0.35 mg tablet 0.35 mg PO DAILY Qty: 84 3RF <Quyen Mario PA-C - Last Filed: 07/03/24 15:08> Follow-up/Referrals: Heather White, LIZZIE [Primary Care Provider] - <Quyen Mario PA-C - Last Filed: 07/03/24 15:08> Time of Disposition: 23:23 <Quyen Mario PA-C - Last Filed: 07/03/24 15:08> 23:23 <Rach Gallegos PA-C - Last Filed: 07/03/24 23:54>
[2024-07-03] MEDS: ASPIRIN 81 MG CHEWABLE TABLET 324 MG PO (16:25)
[2024-07-03 16:39] LABS: Basophils Percent Auto 0.3 % (0.2-1.2); Eosinophils Absolute Auto 0.1 K/mm3 (0-0.3); Eosinophils Percent Auto 0.4 % (0-4.4); Hematocrit 39.9 % (37.0-47.0); Hemoglobin 12.8 g/dL (12.0-15.0); Immature Granulocyte Absolute 0.05 K/mm3 (0.00-0.031); Immature Granulocyte Percent A 0.4 % (0-0.5); Lymphocytes Absolute Auto 1.25 K/mm3 (0.9-3.2); Lymphocytes Percent Auto 10.7 % (18.3-44.2); Mean Corpuscular HGB Conc 32.1 g/dl (32-36); Mean Corpuscular Hemoglobin 27.5 pg (26-34); Mean Corpuscular Volume 85.6 fl (80-100); Mean Platelet Volume 10.8 fl (7.4-10.4); Monocytes Absolute Auto 0.6 K/mm3 (0.1-0.6); Monocytes Percent Auto 4.7 % (2.6-8.5); Neutrophils Absolute Auto 9.8 K/mm3 (1.3-6.7); Neutrophils Percent Auto 83.5 % (45.5-73.1); Platelet Count Result 200 k/mm3 (150-375); Red Blood Count 4.66 M/mm3 (4.2-5.4); Red Cell Distribution Width 12.6 % (11.5-14.5); White Blood Count 11.7 K/mm3 (4.5-10.0)
[2024-07-03 16:48] LABS: Alanine Aminotransferase 22 U/L (6-35); Albumin Level 4.7 g/dL (3.5-5.1); Alkaline Phosphatase 128 U/L (38-126); Anion Gap 11 mmol/L (4-12); Aspartate Amino Transferase 29 U/L (14-36); Bilirubin,Total 0.4 mg/dL (0.2-1.3); Blood Urea Nitrogen 14 mg/dL (7-17); Calcium 9.1 mg/dL (8.4-10.2); Carbon Dioxide 25 mmol/L (22-30); Chloride 101 mmol/L (98-107); Estimated CRCL calculation 140 ml/min; Estimated Glomerular Filt Rate > 60; Glucose 125 mg/dL (65-110); Lipase 50 U/L (23-300); Sodium 137 mmol/L (137-145)
[2024-07-03 16:50] LABS: Prothrombin Time 13.3 Seconds (11.1-14.7)
[2024-07-03 16:51] LABS: Partial Thromboplastin Time 24.7 Seconds (22.3-36.8)
[2024-07-03 16:59] LABS: Troponin I < 0.012 ng/mL (0.000-0.034)
--- NOTE | 2024-07-03 18:24 | ECG_ITS ---
Test Date: 2024-07-03 18:42:26 Measurements Intervals [place] Rate: 85 P: 55 GA: 132 QRS: 22 QRSD: 96 T: 42 QT: 360 QTc: 429 Interpretive Statements SINUS RHYTHM NORMAL ECG Compared to ECG 07/03/2024 15:05:06 No significant changes Electronically Signed On 07-03-2024 20:04:24 CDT by Miguel Wren D.O.
[2024-07-03 19:20] LABS: D Dimer 0.76 ug/mL (<0.48)
[2024-07-03] MEDS: SODIUM CHLORIDE 0.9% IV 1,000 ML 999 ML IV CONT (19:32)
[2024-07-03 21:18] LABS: Troponin I < 0.012 ng/mL (0.000-0.034)
== END 2024-07-03 23:31 | disposition home or self-care (01) ==
PROVIDERS: Emergency Medicine; Emergency Provider Physician Assistant; PCP Nurse Practitioner Family
DX: R55 Syncope and collapse (principal)
CPT/HCPCS: 36415; 71046; 71275; 80053; 83690; 83735; 84443; 84484; 85025; 85380; 85610; 85730; 93005; 96360; 99284; A9270; J7030; Q9967